=== PATIENT | male | born 1955 | race Caucasian/White ===

== ENCOUNTER 2018-05-01 18:59 | Emergency (ER) | payer BC ==
--- NOTE | 2018-05-01 19:11 | EDM.PDOC ---
ED HPI GENERAL MEDICAL PROBLEM - General Stated Complaint: MANY THINGS Time Seen by Provider: 05/01/18 19:08 Source of Information: Reports: Patient History Limitations: Reports: No Limitations - History of Present Illness INITIAL COMMENTS - FREE TEXT/NARRATIVE: HISTORY AND PHYSICAL: History of present illness: 63-year-old male presenting to emergency department for pain medication refill with history of chronic pain. Patient states that he has a chronic pain contract with a physician, Dr. Campoverde, in [place] and he instructed him to come to the emergency room to refill his prescription for Percocet 10 until he is able to get back to [place]. Patient states that he has chronic pain in his shoulders secondary to previous multiple surgeries as well as chronic pain from a varicocele surgery. Patient also mentions that his right wrist is been bothering him today does not recall any significant trauma however it is been swollen and painful to move. In addition he "cut my finger" today. He is unsure of his last tetanus shot. On exam patient has multiple scars on bilateral soldiers from previous surgery. He has generalized swelling to the right wrist. There is no decreased range of motion sensation or strength. He does have some pain in the anatomical snuff box. There is a 1.5 x 0.1 cm laceration to the right distal middle finger. Review of systems: As per history of present illness and below otherwise all systems reviewed and negative. Past medical history: As per history of present illness and as reviewed below otherwise noncontributory. Surgical history: As per history of present illness and as reviewed below otherwise noncontributory. Social history: No reported history of drug or alcohol abuse. Family history: As per history of present illness and as reviewed below otherwise noncontributory. Physical exam: HEENT: Atraumatic, normocephalic, pupils reactive, negative for conjunctival pallor or scleral icterus, mucous membranes moist, throat clear, neck supple, nontender, trachea midline. Lungs: Clear to auscultation, breath sounds equal bilaterally, chest nontender. Heart: S1S2, regular, negative for clicks, rubs, or JVD. Abdomen: Soft, nondistended, nontender. Negative for masses or hepatosplenomegaly. Negative for costovertebral tenderness. Pelvis: Stable nontender. Genitourinary: Deferred. Rectal: Deferred. Extremities: 1.5 x 0.1 cm laceration distal right phalanx, negative for cords or calf pain. Neurovascular unremarkable. Neuro: Awake, alert, oriented. Cranial nerves II through XII unremarkable. Cerebellum unremarkable. Motor and sensory unremarkable throughout. Exam nonfocal. Diagnostics: Right wrist x-ray Therapeutics: Portable 60 mg IM 1 Impression: Right wrist sprain Laceration right middle distal phalanx Plan: We did do x-rays of the right wrist which were unremarkable for any acute bony pathology but did show modest degenerative changes. I did talk to the patient about possibly suturing his middle finger however he would prefer glue at this time. I did use Dermabond to seal the 1.5 x 0.1 cm laceration to the distal middle phalanx of the right hand. No complications, patient tolerated procedure well. I also gave the patient a prescription for Bactrim as the wound was very dirty and mildly erythematous most likely beginning stages of infection. Did give the patient a referral to see Dr. Ferguson, urologist, for his painful postsurgical variceal as well as information to call clinic tomorrow to follow- up and get pain medication. He was given oral 60 mg IM while in the ER during his visit. He was instructed to follow-up as above and return emergency department if any new or worsening symptoms. Definitive disposition and diagnosis as appropriate pending reevaluation and review of above. shoulder Pain Score (Numeric/FACES): 6 - Related Data Allergies Allergy/AdvReac Type Severity Reaction Status Date / Time No Known Allergies Allergy Verified 05/01/18 19:10 Home Meds: Home Meds oxyCODONE HCl/Acetaminophen [Percocet 10-325 mg Tablet] 1 each PO Q6HR PRN 05/01 [History] ED ROS GENERAL - Review of Systems Review Of Systems: ROS reveals no pertinent complaints other than HPI. ED EXAM, GENERAL - Physical Exam Exam: See Below Course - Vital Signs Last Recorded V/S: Last Vital Signs Temp 97.3 F 05/01/18 19:10 Pulse 88 05/01/18 19:10 Resp 18 05/01/18 19:10 BP 161/84 H 05/01/18 19:10 Pulse Ox 98 05/01/18 19:10 - Orders/Labs/Meds Orders: Active Orders 24 hr Category Date Time Status Vaccines to be Administered [RC] PER UNIT ROUTINE Care 05/01/18 19:29 Active Wrist Comp Min 3V Rt [CR] Stat Exams 05/01/18 19:30 Taken Meds: Medications Discontinued Medications Generic Name Dose Route Start Last Admin Trade Name Sky PRN Reason Stop Dose Admin Diphtheria/Tetanus/Acell Pertussis 0.5 ml 05/01/18 19:29 05/01/18 19:49 Adacel IM 05/01/18 19:30 0.5 ml .ONCE ONE Administration Ketorolac Tromethamine 60 mg 05/01/18 19:29 05/01/18 19:48 Toradol IM 05/01/18 19:30 60 mg ONETIME ONE Administration Octyl Cyanoacrylate 1 applic 05/01/18 19:36 05/01/18 19:50 Dermabond Advance TOP 05/01/18 19:37 1 applic ONETIME ONE Administration Departure - Departure Time of Disposition: 20:08 Disposition: Home, Self-Care 01 Condition: Good Clinical Impression: Chronic pain of both shoulders Right wrist sprain Qualifiers: Encounter type: initial encounter Qualified Code(s): S63.501A - Unspecified sprain of right wrist, initial encounter Laceration of right middle finger Qualifiers: Encounter type: initial encounter Damage to nail status: without damage Foreign body presence: without foreign body Qualified Code(s): S61.212A - Laceration without foreign body of right middle finger without damage to nail, initial encounter - Discharge Information Referrals: PCP,None [Primary Care Provider] - Additional Instructions: My general discharge The following information is given to patients seen in the emergency department who are being discharged to home. This information is to outline your options for follow-up care. We provide all patients seen in our emergency department with a follow-up referral. The need for follow-up, as well as the timing and circumstances, are variable depending upon the specifics of your emergency department visit. If you don't have a primary care physician on staff, we will provide you with a referral. We always advise you to contact your personal physician following an emergency department visit to inform them of the circumstance of the visit and for follow-up with them and/or the need for any referrals to a consulting specialist. The emergency department will also refer you to a specialist when appropriate. This referral assures that you have the opportunity for follow-up care with a specialist. All of these measure are taken in an effort to provide you with optimal care, which includes your follow-up. Under all circumstances we always encourage you to contact your private physician who remains a resource for coordinating your care. When calling for follow-up care, please make the office aware that this follow-up is from your recent emergency room visit. If for any reason you are refused follow-up, please contact the [facility] at and asked to speak to the emergency department charge nurse. [facility] - Urology [address] [place] [id number] [facility] [address] [place] [id number] Please call both above numbers to follow-up with urology for your varicocele and primary care for refill of your chronic pain medications. Take antibiotics as prescribed for possible infection of finger. Return to emergency department if any new or worsening symptoms. - My Orders Last 24 Hours: My Active Orders 05/01/18 19:29 Vaccines to be Administered [RC] PER UNIT ROUTINE 05/01/18 19:30 Wrist Comp Min 3V Rt [CR] Stat - Assessment/Plan Last 24 Hours: My Active Orders 05/01/18 19:29 Vaccines to be Administered [RC] PER UNIT ROUTINE 05/01/18 19:30 Wrist Comp Min 3V Rt [CR] Stat
[2018-05-01] MEDS ORDERED: Ketorolac 60 MG/2 ML SDV IM ONE (19:29)
[2018-05-01] MEDS ORDERED: Diphtheria,Pertussis(Acell),Tetanus Vaccine 0.5 ML Syringe IM ONE (19:29)
[2018-05-01] MEDS ORDERED: Octyl 2-Cyanoacrylate 1 Tube TOP ONE (19:36)
--- NOTE | 2018-05-02 09:34 | CR ---
EXAM DATE: 05/01/18 PATIENT'S AGE: 63 Patient: RAFY GRIJALVA Facility: [place], [place] Site . Site : [id number] Study: XRay Extremity Right wrist [id number]/[id number] 7:51:38 PM Ordering Physician: Terrance Durand Final Report: INDICATION: Pain and swelling. FINDINGS: The soft tissue structures are in an mildly edematous. There is no elevation of the pronator quadratus fat pad. Bony mineralization is normal. Modest degenerative changes in of the right wrist as evidenced by joint space narrowing at the radiocarpal space in the 1st metacarpal/carpal space. There is no acute fracture nor dislocation. IMPRESSION: Modest degenerative changes right wrist. Dictated by Janett Garcia MD @ May 01 2018 7:57PM (Electronic Signature) Report Signed by Proxy. NAINA
== END 2018-05-01 20:33 | disposition home or self-care (01) ==
LOC: MW.ED 18:59
DX: S61.212A Laceration without foreign body of right middle finger without damage to nail, initial encounter (principal); S63.501A Unspecified sprain of right wrist, initial encounter; Z23 Encounter for immunization; X58.XXXA Exposure to other specified factors, initial encounter
CPT/HCPCS: 12001; 73110; 90471; 90715; 96372; 99282; A9270; J1885; 99283